=== PATIENT | male | born 1940 | race Caucasian/White ===

== ENCOUNTER 2018-09-17 09:45 | Inpatient (IN) | payer MEDICARE, OTHER ==
[~2018-09-17] VITALS: Ht 167.6 cm; Wt 80.6 kg
[~2018-09-17 09:45] MED LIST: GLUCOSAMINE/CHONDROI PO; MVI PO; POTASSIUM CHLO10 ME2 PO; PRILOSEC 20MG20 MG PO; SULAR PO
[2018-09-18] VITALS (11 sets, daily range): BP systolic 95–135; BP diastolic 44–73; PULSE 45–64; TEMP 97.4–98
[2018-09-18] MEDS ORDERED: BENADRYL25 M2 PO (09:41)
--- NOTE | 2018-09-18 16:27 | NUR ---
PT TO ROOM 332 PER BED WITH REPORT FROM BRIGID KURTZ PACU @ 4840. PT A/O X3. LUNGS CLEAR, BOWEL SOUNDS PRESENT. VSS. H20 PROVIDED. IV TO PUMP. SCDS BILATERALLY. OCCLUSIVE DRESSING WITH JUN WRAP CDI.
--- NOTE | 2018-09-18 19:13 | NUR ---
REPORT TO FEDERICO KURTZ.
--- NOTE | 2018-09-18 21:15 | NUR ---
Pt. laying in bed watching TV at this time. Pt. is A&OX3, assessment complete. IV to lt. wrist patent, IV fluids infusing per orders. Pt. reports pain at an 8 on pain scale, gave pain meds per orders. Dressing to lt. leg CDI, tg wrap. Pt. denies further needs at this time.
[2018-09-19 03:23] VITALS: BP 132/65; PULSE 97; TEMP 97.8
--- NOTE | 2018-09-19 06:10 | NUR ---
Pt. slept off and on through the night. Pt. remains A&OX3. IV to lt. wrist. Pt. denies pain or other needs at this time.
[2018-09-19 07:16] LABS: HEMATOCRIT 42.3 % (42.0-52.0)
--- NOTE | 2018-09-19 08:00 | NUR ---
PATIENT REPORTED WAITING A LONG TIME TO ORDER BREAKFAST THIS AM. AFTER FURTHER QUESTIONS NURSING DISCOVERED HE WAS TRYING TO ORDER AT 0545 AND ROOM SERVICE DOESN'T OPEN TILL 0630 INDICATED ON MENU AND ROOM BOARD. PATIENT WAS CONFUSED BY AUTOMATED VOICE RECORDING LEFT BY THE KITCHEN. PATIENT IS A&0. VSS. C/O LOTS OF PAIN IN LLE. PATIENT RESTING UP IN BED AND FALLS ASLEEP OCCATIONALLY. PATIENT REQUESTING SOMETHING FOR PAIN BEFORE AM THERAPY. GAVE PRN ROXICODONE, TWO TABS WITH AM MEDS. BREAKFAST TRAY AT BEDSIDE. NO C/O N/V. LEFT WRIST IV TO INT. HEAD TO TOE ASSESSMENT WNL. ELEVATED LLE WITH PILLOW AND CRYOCUFF INPLACE. LTK DRESSING IS CD&I WITH ACEWRAP. TEDS TO RLE. SCD'S TO BLE. POSITIVE PEDAL PULSES TO BLE. DC'D ANGLIN PER ORDERS. ANGLIN CATH TIP INTACT AND PATIENT TOLERATED WELL. NO OTHER NEEDS AT THIS TIME. CALL LIGHT IN REACH.
[2018-09-19 09:56] VITALS: BP 142/64; PULSE 73; TEMP 98.6
--- NOTE | 2018-09-19 10:12 | NUR ---
Initial visit; Patient thanked Product Builder for looking in on him and offering God's blessings. Patient stated he had already received Holy Communion so he's been seen by Deacons. Product Builder will continue to look in on patient while he is here.
--- NOTE | 2018-09-19 10:37 | NUR ---
SW met with the patient to discuss discharge plan. The patient had a left total knee done. He lives in [place] with his , Pascual. He reports independence with ADLs and has a cane and walker. The patient's PCP is Dr. Chris Bennett and he receives his medications at the [facility]. He reports no difficulties obtaining his meds. The patient does not have advanced directives in EMR, but he states that he does have them completed. He states his is his DPOA-HC. The patient plans to return home with his and receive outpatient therapy at a therapy center in [place]. The patient could not remember the name of the one he was going to. No other identified needs at this time.
[2018-09-19 13:01] VITALS: BP 131/67; PULSE 76; TEMP 98.1
[2018-09-19 17:04] VITALS: BP 153/64; PULSE 80; TEMP 98.5
[2018-09-19 20:00] VITALS: BP 159/69; PULSE 79; TEMP 98.2
--- NOTE | 2018-09-19 20:00 | NUR ---
Report received-assumed care for servicer. Assessment complete. VS stable. Sitting up in chair at this time with c/o "acid reflux." States he is belching up dinner-pepcid given per dr calhoun. Is A&Ox3 but making some confused comments. States the pain medicine has him feeling "loopy." Denies pain at this time. Ambulated in hallway with standby assist/walker/gait belt. Unsteady at first but stabalized. States the pain medication has him feeling less steady. Assisted to bathroom then back to bed. Fresh ice applied to left knee. Call light within reach. Bed in low position. Bed alarm on due to confusion, WIll monitor.
--- NOTE | 2018-09-19 23:00 | NUR ---
Rounds completed-resting with eyes closed. Has not called for pain medication yet this shift. Was slightly confused at 2000. A&Ox3 but would make comments that were off. Day shift stated in report that they noticed some confusion late in the day-worried pain meds were starting to cause confusion. Will monitor closely for increase in pain and medicate per dr order.
[2018-09-20] VITALS: BP 157/66; PULSE 68; PULSE 75; TEMP 98.3
--- NOTE | 2018-09-20 03:00 | NUR ---
Continues to rest well this shift. Denies need for pain meds at this time. Used urinal and seems less confused. WIll monitor.
[2018-09-20 04:00] VITALS: BP 138/53; PULSE 80; TEMP 98.5
--- NOTE | 2018-09-20 05:01 | NUR ---
Notified by AQUACULTURE AND FISHERIES PROFESSOR requesting pain meds. Rating pain 8/10 to left knee. States it feels as if there is a lot of weight on the knee-requesting cryocuff be removed. Adjust cryocuff and tightened thigh strap. States it feels less heavy. Repositioned on pillow. [place] two tabs given per dr order. Will re-evaluate pain level in one hour. Call light within reach. Will monitor.
[2018-09-20] MEDS ORDERED: NORCO 325 MG-7.1 TAB PO (07:07)
[2018-09-20] MEDS ORDERED: ASPI325T6 PO (07:07)
--- NOTE | 2018-09-20 08:00 | NUR ---
PATIENT IS ORIENTED BUT DROWSY. VSS. RATES PAIN HIGH BUT DOESN'T GIVE IT A NUMBER. GAVE PRN ROXICODONE, TWO TABE BEFORE AM THERAPY PER PATIENT REQUEST. LTK DRESSING IS CD&I WITH AQUACEL. TEDS TO BLE. POSITIVE PEDAL PULSES TO BLE. PATIENT EAT/DRINK/VOIDING SUFFICENT AMOUNTS. NO C/O N/V. DC'D LEFT WRIST IV, COVERED SITE WITH BANDAID. BREAKFAST TRAY ORDERED. AM MEDS GIVEN. HEAD TO TOE ASSESSMENT WNL. NO OTHER NEEDS. CALL LIGHT IN REACH.
--- NOTE | 2018-09-20 09:31 | NUR ---
Follow-up visit; Patient appeared to enjoy visiting with Rail Track Maintainer.
[2018-09-20 10:51] VITALS: BP 125/56; PULSE 77; TEMP 98.4
--- NOTE | 2018-09-20 14:10 | NUR ---
PATIENT DISCHARGING HOME VIA WHEELCHAIR TO PERSONAL VEHICLE WITH . GAVE DISCHARGE INSTRUCTIONS, PRESCRIPTIONS, AQUACEL AND FOLLOW UP APTS. ANSWERED ALL QUESTIONS/CONCERNS. SENT HOME PERSONAL BELONGINGS WITH . PATIENT DISCHARGED.
== END 2018-09-20 14:10 | disposition home or self-care (01) | DRG 470 ==
LOC: JCC 09-18 09:12
PROVIDERS: ADMIT Orthopaedic Surgery
PROC: 0SRD0J9 Replacement of Left Knee Joint with Synthetic Substitute, Cemented, Open Approach (ICD-10-PCS; principal; 2018-09-18 12:15)
DX: M17.12 Unilateral primary osteoarthritis, left knee (principal); N40.0 Benign prostatic hyperplasia without lower urinary tract symptoms; Z96.651 Presence of right artificial knee joint; F17.210 Nicotine dependence, cigarettes, uncomplicated
CPT/HCPCS: A4314; A9284; C1713; C1776; J0690; J1885; J2250; J2704; J3010; J7120

== ENCOUNTER 2020-06-24 12:26 | Observation (INO) | payer MEDICARE, OTHER ==
[~2020-06-24] VITALS: Ht 167.6 cm; Wt 84.1 kg
[~2020-06-24 12:26] MED LIST changes: +ASPI325T6 PO; +BENADRYL25 M2 PO; +NORCO 325 MG-7.1 TAB PO
[2020-06-24 14:27] LABS: BASO # 0.1 (0.0-0.2); BASO % 0.5 % (0.0-2.0); EOS # 0.4 (0.0-0.7); EOS % 3.3 % (0-4.0); GRAN # 8.4 (1.4-6.5); GRAN % 69.9 % (42.2-75.2); HEMATOCRIT 41.7 % (42.0-52.0); HEMOGLOBIN 14.2 g/dl (13.5-18.0); LYMPH # 2.1 (1.2-3.4); LYMPH % 17.7 % (20.0-51.0); MEAN CELL VOLUME 90 fl (80.0-100.0); MEAN CORPUSCULAR HEMOGLOBIN 31 pg (27.0-31.0); MEAN CORPUSCULAR HGB CONC 34 g/dl (33.0-37.0); MEAN PLATELET VOLUME 9.2 fl (7.4-10.4); MONO % 8.3 % (1.7-9.3); PLATELET COUNT 238 K/mm3 (130-400); RED BLOOD COUNT 4.62 M/mm3 (4.20-5.60); REDCELL DISTRIBUTION WIDTH-CV 13.9 % (11.5-14.5)
[2020-06-24 14:42] LABS: ALANINE AMINOTRANSFERASE 20 U/L (4-49); ALBUMIN 4.1 gm/dL (3.5-5.0); ALKALINE PHOSPHATASE 97 U/L (50-136); ANION GAP 10 mmol/L (7-16); AST,SGOT 26 U/L (15-37); BILIRUBIN,TOTAL 0.2 mg/dL (0.0-1.0); BLOOD UREA NITROGEN 24 mg/dL (9-20); CALCIUM 8.9 mg/dL (8.4-10.2); CARBON DIOXIDE 24 mmol/L (22-30); CHLORIDE 105 mmol/L (98-107); CREATININE, serum 0.71 (0.66-1.25); GLUCOSE 125 mg/dL (74-106); POTASSIUM 3.6 mmol/L (3.4-5.0); SODIUM 138 mmol/L (137-145); TOTAL PROTEIN 7.1 gm/dL (6.4-8.2)
[2020-06-24 14:44] LABS: C-REACTIVE PROTEIN < 0.5 mg/dL (0.0-0.9)
[2020-06-24] MEDS ORDERED: ONE-A-DAY ESSE1 EACH PO (16:38)
[2020-06-24] MEDS ORDERED: IBU400 MG PO (16:39)
[2020-06-24] MEDS ORDERED: TUMS500 MG PO (16:39)
[2020-06-24] MEDS ORDERED: GLUCOSAMIN 500 PO (16:42)
[2020-06-24] MEDS ORDERED: EPA FISH OIL1 SGL PO (16:43)
[2020-06-24] MEDS ORDERED: LUTEIN20 M1 PO (16:43)
[2020-06-24] MEDS ORDERED: VITAMIN C500 MG PO (16:44)
[2020-06-24] MEDS ORDERED: PHARMASSURE ZIN50 MG PO (16:44)
[2020-06-24] MEDS ORDERED: VITAMIN E 400 U4001 PO (16:44)
[2020-06-24] MEDS ORDERED: CLARITIN 1010 MG/TAB PO (18:35)
[2020-06-24] MEDS ORDERED: ASPIRIN 32325 MG/TAB PO (18:36)
[2020-06-24] MEDS ORDERED: GLUCOSAMINE & C1 TAB PO (18:38)
--- NOTE | 2020-06-24 18:38 | NUR ---
Pt admitted to medical unit rm 357 from ED via , A&O x 4, ambulates with steady gait. Neuro checks WNL. Pt denies pain or other c/o. Saline lock IV to right hand without s/s of complications. Call light in reach.
[2020-06-24 18:55] LABS: PHOSPHOROUS 3.3 mg/dL (2.5-4.5)
[2020-06-24 20:14] VITALS: BP 117/51; PULSE 67; TEMP 97.6
--- NOTE | 2020-06-24 23:57 | NUR ---
ALERT AND OX4. DENIES VISUAL DISTURBANCE. NEURO INTACT. STEADY ON FEET. NO SLURRED SPEECH OR FACIAL DROOP. STARTED ON NEW ANTIBOTIC AUGEMENTIN FOR SINUITIS. IV FLUIDS STARTED AND TELE INIATED. PT DENIES ANY PAIN. POC DISCUSSED. NEEDS MET.
[2020-06-25 00:16] VITALS: BP 117/62; PULSE 70; TEMP 97.5
[2020-06-25 04:26] VITALS: BP 101/51; PULSE 60; TEMP 97.6
--- NOTE | 2020-06-25 05:16 | NUR ---
Rested through the night without incident. Needs met.
[2020-06-25 07:16] LABS: CHOLESTEROL RISK RATIO 5.7
[2020-06-25 07:27] VITALS: BP 122/64; PULSE 61; TEMP 97.5
--- NOTE | 2020-06-25 08:16 | NUR ---
Pt awake and alert upon entry, sitting on edge of bed eating breakfast. No C/O pain at this time. Pt has no visual anomalies currently. Shift assessments complete, left Pt in bed, in lowest position.
[2020-06-25 11:49] VITALS: BP 120/62; PULSE 66; TEMP 98
[2020-06-25 12:41] LABS: COLLECTION METHOD CLEAN CATCH
[2020-06-25 12:53] LABS: MUCOUS Present /lpf; PH 6 (5-8); SQUAMOUS EPITHELIAL 0-2 /hpf; URINE APPEARANCE Clear; URINE BACTERIA None Seen /hpf; URINE BILIRUBIN Negative (NEGATIVE); URINE BLOOD Negative (NEGATIVE); URINE COLOR Yellow; URINE GLUCOSE Negative (NEGATIVE); URINE KETONE Negative (NEGATIVE); URINE LEUKOCYTE ESTERASE Negative (NEGATIVE); URINE NITRATE Negative (NEGATIVE); URINE PROTEIN(semi-quant) Negative (NEGATIVE); URINE RBC 0-2 /hpf; URINE UROBILINOGEN Negative (NEGATIVE)
--- NOTE | 2020-06-25 13:22 | NUR ---
Initial visit; Patient thanked Kiln Repairer for looking in on him and offering God's blessings. Patient friendly and had a good sense of humor.
--- NOTE | 2020-06-25 13:55 | NUR ---
Loom Blower met with patient to discuss discharge planning. Patient lives in [place] with his , Pascual (ph#[phone]) who is at bedside. Patient sees Dr. Siegel for primary care and obtains medications from [facility] with no difficulties. Patient does not use any DME and is independent with ADLS. Patient reports he has DPOA-HC completed at home which designates his , Pascual. Discharge Plan: Home today.
[2020-06-25] MEDS ORDERED: AMOXICILLIN 8751 TAB PO (16:03)
[2020-06-25] MEDS ORDERED: ASPIRIN 81M81 MG/TA2 PO (16:05)
[2020-06-25] MEDS ORDERED: PLAVIX 75MG TAB75 MG PO (16:06)
[2020-06-25 16:10] VITALS: BP 134/69; BP 152/75; PULSE 67; TEMP 98
--- NOTE | 2020-06-25 17:12 | NUR ---
Pt discharged to home, discussed discharge packet with Pt / spouse, answered questions. Escorted Pt to entrance, Pt left with spouse via private transportation.
== END 2020-06-25 17:05 | disposition home or self-care (01) ==
LOC: COL.ER 12:26 → MEDICAL 16:22
PROVIDERS: Emergency Medicine; Nurse Practitioner Family; ADMIT Hospitalist
DX: R51.9 Headache, unspecified (principal); H53.9 Unspecified visual disturbance; D72.829 Elevated white blood cell count, unspecified; K76.89 Other specified diseases of liver; J32.0 Chronic maxillary sinusitis; H35.30 Unspecified macular degeneration; K21.9 Gastro-esophageal reflux disease without esophagitis; N40.0 Benign prostatic hyperplasia without lower urinary tract symptoms; M19.90 Unspecified osteoarthritis, unspecified site; F17.210 Nicotine dependence, cigarettes, uncomplicated; Z85.828 Personal history of other malignant neoplasm of skin; Z87.19 Personal history of other diseases of the digestive system; Z91.048 Other nonmedicinal substance allergy status; Z90.89 Acquired absence of other organs; Z79.899 Other long term (current) drug therapy; Z90.49 Acquired absence of other specified parts of digestive tract; Z79.82 Long term (current) use of aspirin; Z83.3 Family history of diabetes mellitus; Z82.3 Family history of stroke
CPT/HCPCS: A9585; G0378; J1650; J7030; Q9967

== ENCOUNTER → 2020-07-17 | Outpatient (CLI) | payer MEDICARE, OTHER ==
[~2020-07-17] MED LIST changes: +AMOXICILLIN 8751 TAB PO; +ASPIRIN 32325 MG/TAB PO; +ASPIRIN 81M81 MG/TA2 PO; +CEFTIN500 MG PO; +CLARITIN 1010 MG/TAB PO; +EPA FISH OIL1 SGL PO; +GLUCOSAMIN 500 PO; +GLUCOSAMINE & C1 TAB PO; +IBU400 MG PO; +LUTEIN20 M1 PO; +NORCO 325 MG-51 TAB PO; +ONE-A-DAY ESSE1 EACH PO; +PHARMASSURE ZIN50 MG PO; +PLAVIX 75MG TAB75 MG PO; +PROSVENT; +TUMS500 MG PO; +VITAMIN C500 MG PO; +VITAMIN E 400 U4001 PO; +ZOFRAN ODT4 MG PO
== END ==
LOC: COL.RAD 09:02
DX: K76.89 Other specified diseases of liver (principal)

== ENCOUNTER 2020-07-28 20:39 | Observation (INO) | payer MEDICARE, OTHER ==
[~2020-07-28] VITALS: Ht 167.6 cm; Wt 83.0 kg
[~2020-07-28 20:39] MED LIST changes: -CEFTIN500 MG PO; -NORCO 325 MG-51 TAB PO; -PROSVENT; -ZOFRAN ODT4 MG PO
[2020-07-28 21:33] LABS: BASO # 0.1 (0.0-0.2); BASO % 0.4 % (0.0-2.0); EOS # 0.1 (0.0-0.7); EOS % 0.3 % (0-4.0); GRAN % 83.8 % (42.2-75.2); HEMOGLOBIN 14.6 g/dl (13.5-18.0); LYMPH # 1.6 (1.2-3.4); LYMPH % 9.2 % (20.0-51.0); MEAN CELL VOLUME 90 fl (80.0-100.0); MEAN CORPUSCULAR HEMOGLOBIN 30 pg (27.0-31.0); MEAN CORPUSCULAR HGB CONC 33 g/dl (33.0-37.0); MEAN PLATELET VOLUME 9.5 fl (7.4-10.4); MONO # 1.1 (0.1-0.6); MONO % 5.9 % (1.7-9.3); PLATELET COUNT 273 K/mm3 (130-400); RED BLOOD COUNT 4.87 M/mm3 (4.20-5.60); REDCELL DISTRIBUTION WIDTH-CV 13.8 % (11.5-14.5)
[2020-07-28 21:43] LABS: COLLECTION METHOD CLEAN CATCH
[2020-07-28 21:45] LABS: ALBUMIN 4.6 gm/dL (3.5-5.0); BILIRUBIN,TOTAL 0.5 mg/dL (0.0-1.0); CALCIUM 9.1 mg/dL (8.4-10.2); CREATININE, serum 1.13 (0.66-1.25); POTASSIUM 3.8 mmol/L (3.4-5.0); TOTAL PROTEIN 7.8 gm/dL (6.4-8.2)
[2020-07-28 21:55] LABS: MUCOUS Present /lpf; PH 6 (5-8); SQUAMOUS EPITHELIAL None Seen /hpf; URINE APPEARANCE Hazy; URINE BACTERIA None Seen /hpf; URINE BILIRUBIN Negative (NEGATIVE); URINE BLOOD 3+ (NEGATIVE); URINE COLOR Yellow; URINE GLUCOSE Negative (NEGATIVE); URINE KETONE 1+ (NEGATIVE); URINE LEUKOCYTE ESTERASE Negative (NEGATIVE); URINE NITRATE Negative (NEGATIVE); URINE PROTEIN(semi-quant) 1+ (NEGATIVE); URINE RBC >50 /hpf; URINE UROBILINOGEN Negative (NEGATIVE)
[2020-07-28] MEDS ORDERED: PROSVENT (23:33)
[2020-07-29] VITALS (10 sets, daily range): BP systolic 104–143; BP diastolic 46–75; PULSE 55–96; TEMP 97.2–98.2
--- NOTE | 2020-07-29 05:51 | NUR ---
Patient arrived to surgical unit from ER at approximately 2320. Alert and oriented x 4, and able to make needs known. Has denied having pain and discomfort since arriving to unit. Peripheral IV to right AC with fluids running per orders. Site without redness, warmth, swelling, and pain. Denies having SOB and dyspnea. LS CTA. Respirations even and unlabored. HRR. Capillary refill less than 3 seconds. Non-tenting skin turgor. BSAx4. Abdomen soft and non-tender. No edema. Patient's urine is clear and yellow. Straining all urine. No stones noted so far. Patient voices no questions, needs, or concerns at this time. Aware that he is NPO for possible procedure today. Resting in bed with call light within reach.
--- NOTE | 2020-07-29 08:37 | NUR ---
PT INDEPENDENT IN ROOM. DR. SHEETS IN TO SEE PT. PLAN ON PROCEEDURE LATER THIS PM. VSS, ASSESSMENTS WNL. PT DENIES PAIN OR NEEDS.
--- NOTE | 2020-07-29 09:36 | NUR ---
Initial visit; Patient thanked Messaging Architect for looking in on him and offering God's blessings and to keep him in her prayers.
--- NOTE | 2020-07-29 14:34 | NUR ---
Neon Installer met with patient to discuss discharge planning. Upon entry into room, SW observed patient moving throughout the room independently. Patient lives in [place] with his , Pascual (ph#[phone]) and sees Dr. Siegel for primary care. Patient obtains medications from [facility] with no difficulties. Patient does not currently use any DME but has a sleep study on 08/04/20 to determine if he needs a CPAP. Patient reports independence with ADLS and plans to return home upon discharge. Patient states he is unsure if he's ever done DPOA-HC. Patient does have a declaration in EMR. Patient's legal next of kin is his , Pascual. SW spoke with RN who did not believe patient needed PT/OT at this time. SW contacted patient's , Pascual who has no concerns with patient returning home upon discharge. Discharge Plan: Home with
--- NOTE | 2020-07-29 21:20 | NUR ---
Patient arrived back to surgical floor from PACU at approximately 2004. Patient denies having pain and discomfort at this time. Assisted to bathroom. Able to urinate. Some blood present to penis, which was expected post cysto. Denies having discomfort with urination. Patient able to eat sandwhich box. Denie nausea and upset stomach. Patient and ready for discharge. Went over discharge paperwork, and assisted out via wheelchair with [facility] employee. Patient and voiced no questions, needs, or concerns. Patient D/C'd at 2109. IV to right forearm taken out prior to discharge.
== END 2020-07-29 21:10 | disposition home or self-care (01) ==
LOC: COL.ER 20:39 → SURG 22:44
PROVIDERS: Emergency Medicine; ADMIT Urology
DX: N13.2 Hydronephrosis with renal and ureteral calculous obstruction (principal); F17.210 Nicotine dependence, cigarettes, uncomplicated; Z79.82 Long term (current) use of aspirin; Z79.899 Other long term (current) drug therapy
CPT/HCPCS: G0378; J0690; J0696; J1885; J2405; J2704; J3010; J7030; Q9967

== ENCOUNTER 2020-12-08 21:14 | Emergency (ER) | payer MEDICARE, OTHER ==
[~2020-12-08] VITALS: Ht 167.6 cm; Wt 85.0 kg
[~2020-12-08 21:14] MED LIST changes: +PROSVENT
[2020-12-08 22:01] LABS: BASO # 0.1 K/mm3 (0.0-0.2); BASO % 0.8 % (0.0-2.0); EOS # 0.3 K/mm3 (0.0-0.7); EOS % 2.1 % (0-4.0); GRAN # 11.8 K/mm3 (1.4-6.5); GRAN % 76.9 % (42.2-75.2); HEMOGLOBIN 14.1 g/dl (13.5-18.0); LYMPH # 1.6 K/mm3 (1.2-3.4); LYMPH % 10.7 % (20.0-51.0); MEAN CELL VOLUME 92 fl (80.0-100.0); MEAN CORPUSCULAR HEMOGLOBIN 30 pg (27.0-31.0); MEAN CORPUSCULAR HGB CONC 33 g/dl (33.0-37.0); MEAN PLATELET VOLUME 9.4 fl (7.4-10.4); MONO # 1.4 K/mm3 (0.1-0.6); MONO % 9.2 % (1.7-9.3); PLATELET COUNT 249 K/mm3 (130-400); RED BLOOD COUNT 4.66 M/mm3 (4.20-5.60); REDCELL DISTRIBUTION WIDTH-CV 14.1 % (11.5-14.5)
[2020-12-08 22:19] LABS: BILIRUBIN,TOTAL 0.5 mg/dL (0.2-1.2); CALCIUM 9.9 mg/dL (8.4-10.2); CREATININE, serum 1.18 mg/dL (0.72-1.25); POTASSIUM 3.9 mmol/L (3.5-4.5); TOTAL PROTEIN 7.6 gm/dL (6.2-8.1)
[2020-12-08 23:09] LABS: COLLECTION METHOD CLEAN CATCH
[2020-12-08 23:26] LABS: MUCOUS Present /lpf; PH 6 (5-8); SQUAMOUS EPITHELIAL None Seen /hpf; URINE APPEARANCE Clear; URINE BACTERIA None Seen /hpf; URINE BILIRUBIN Negative (NEGATIVE); URINE BLOOD 1+ (NEGATIVE); URINE COLOR Yellow; URINE GLUCOSE Negative (NEGATIVE); URINE KETONE Negative (NEGATIVE); URINE LEUKOCYTE ESTERASE Negative (NEGATIVE); URINE NITRATE Negative (NEGATIVE); URINE PROTEIN(semi-quant) Negative (NEGATIVE); URINE UROBILINOGEN Negative (NEGATIVE)
[2020-12-09] MEDS ORDERED: NORCO 325 MG-51 TAB PO (01:59)
[2020-12-09] MEDS ORDERED: CEFTIN500 MG PO (01:59)
[2020-12-09] MEDS ORDERED: ZOFRAN ODT4 MG PO (02:03)
[2020-12-09 02:23] VITALS: BP 156/85; PULSE 82; TEMP 98.7
== END 2020-12-09 02:23 | disposition home or self-care (01) ==
LOC: COL.ER 21:14
PROVIDERS: Emergency Medicine
DX: N13.2 Hydronephrosis with renal and ureteral calculous obstruction (principal); F17.210 Nicotine dependence, cigarettes, uncomplicated; Z90.49 Acquired absence of other specified parts of digestive tract; Z96.0 Presence of urogenital implants; Z79.82 Long term (current) use of aspirin; Z86.73 Personal history of transient ischemic attack (TIA), and cerebral infarction without residual deficits
CPT/HCPCS: J0696; J7030; Q9967

== ENCOUNTER 2020-12-09 14:56 | Day surgery (SDC) | payer MEDICARE, OTHER ==
[2020-12-09] VITALS (9 sets, daily range): BP systolic 119–182; BP diastolic 59–99; PULSE 58–79; TEMP 97.6–98.5
[~2020-12-09] VITALS: Ht 167.6 cm; Wt 83.8 kg
[~2020-12-09 14:56] MED LIST changes: +CEFTIN500 MG PO; +NORCO 325 MG-51 TAB PO; +ZOFRAN ODT4 MG PO
--- NOTE | 2020-12-09 19:00 | NUR ---
Pt. arrived to the floor via stretcher. Pt. able to ambulate to the bathroom then the bed independently. Pt. was not able to urinate at this time. Pt. given a urinal. Vitals have been high. Will monitor.
--- NOTE | 2020-12-09 20:30 | NUR ---
Dr. Collins notified that pt. has only been able to void 50 ml of bloody urine. Pt. was bladder scanned in the PACU and was noted to have [address] Collins order to place catheter and for pt. to stay the night. Pt. continues to have elevated bp's, Dr. Collins said to see if placing catheter improves BP, and if it doesn't we will consult hospitalist.
[2020-12-10 00:27] VITALS: BP 120/66; PULSE 79; TEMP 97.8
[2020-12-10 04:52] VITALS: BP 120/71; PULSE 68; TEMP 97.5
[2020-12-10 07:09] VITALS: BP 124/56; PULSE 64; TEMP 97.4
--- NOTE | 2020-12-10 08:15 | NUR ---
Lopez catheter discontinued as ordered. Explained to call when he voids. Explained he can go home if he is able to void without issues. Denies pain at this time. Patient tolerated the catheter removal well without issues. Urine was pink before removal. No other changes at this time. Call light within reach.
--- NOTE | 2020-12-10 09:30 | NUR ---
SW met with the patient to discuss discharge plan. The patient live in [place] with his , Pascual (ph#[phone]). He reports independence with ADLs and has canes and walkers. The patient's PCP is Dr. Jamil Siegel and he receives his medications from [facility]. He reports no difficulties obtaining his meds. The patient does not have a DPOA-HC, but he states that he does have one completed and that it designates his . The patient plans to return home with his upon discharge. No additional needs at this time. *Discharge plan: home with *
[2020-12-10 11:41] VITALS: BP 144/65; PULSE 73; TEMP 97.9
--- NOTE | 2020-12-10 13:11 | NUR ---
First visit from the assembler utility buildings. No needs right now.
--- NOTE | 2020-12-10 13:50 | NUR ---
Patient has been able to void without issues. Patient is discharging home. Discharge instructions discussed with patient. No questions verbalized. INT discontinued. Urine is light pink with voiding, no clots noted. Explained to patient that if urine gets darker red or has clots to call Dr Wilkerson office. Explained when follow up appointment is and that they want to do a KUB at the appointment. Patient verbalized understanding. Belongings packed up and sent with patient. Copies of discharge instructions sent with patient. Patient walked out with Cori ROBERTS.
== END 2020-12-10 13:50 | disposition home or self-care (01) ==
LOC: SDCO 14:56 → SURG 19:00 → SDCO 12-10 13:50
DX: N13.2 Hydronephrosis with renal and ureteral calculous obstruction (principal); K21.9 Gastro-esophageal reflux disease without esophagitis; F17.210 Nicotine dependence, cigarettes, uncomplicated; Z90.89 Acquired absence of other organs; Z79.82 Long term (current) use of aspirin; Z79.899 Other long term (current) drug therapy; Z20.822 Contact with and (suspected) exposure to COVID-19
CPT/HCPCS: OP; C1769; C2617; J0690; J1100; J2405; J2704; J3010; J7120; Q9967

== ENCOUNTER → 2021-04-07 | Outpatient (CLI) | payer MEDICARE, OTHER | LOC: COL.RAD 09:08 | DX: K76.89 Other specified diseases of liver (principal) ==

== ENCOUNTER → 2021-06-11 | Outpatient (CLI) | payer MEDICARE, OTHER | LOC: COL.VAS 10:00 | DX: I65.23 Occlusion and stenosis of bilateral carotid arteries (principal) ==